=== PATIENT | female | born 2000 | race Caucasian/White ===

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

== ENCOUNTER → 2022-11-28 | Outpatient (CLI) | payer OTHER ==
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
== END | disposition home or self-care (01) ==
LOC: RADUSWWP 08:43
PROVIDERS: ATTEND Family Medicine
DX: N83.201 Unspecified ovarian cyst, right side (principal); N83.202 Unspecified ovarian cyst, left side
CPT/HCPCS: 76856

== ENCOUNTER 2024-07-30 13:14 | Emergency (ER) | payer OTHER ==
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
[2024-07-30 14:20] VITALS: BP 130/80; PULSE 82; RESP 18; TEMP 98.4
== END 2024-07-30 14:19 | disposition home or self-care (01) ==
LOC: EC 13:14
DX: S61.402A Unspecified open wound of left hand, initial encounter (principal); F17.290 Nicotine dependence, other tobacco product, uncomplicated; W34.00XA Accidental discharge from unspecified firearms or gun, initial encounter
CPT/HCPCS: 99283

== ENCOUNTER → 2024-08-06 | Outpatient (CLI) | payer OTHER ==
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
== END | disposition home or self-care (01) ==
LOC: RADCTMAIN 15:48
PROVIDERS: ATTEND Orthopaedic Surgery Hand Surgery
DX: S62.145A Nondisplaced fracture of body of hamate [unciform] bone, left wrist, initial encounter for closed fracture (principal); R60.0 Localized edema; X58.XXXA Exposure to other specified factors, initial encounter

== ENCOUNTER → 2024-09-13 | Outpatient (CLI) | payer OTHER ==
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
== END | disposition home or self-care (01) ==
LOC: RADCTMAIN 15:52
PROVIDERS: ATTEND Orthopaedic Surgery Hand Surgery
DX: M25.532 Pain in left wrist (principal); Z98.890 Other specified postprocedural states